=== PATIENT | female | born 1930 | race Caucasian/White ===

== ENCOUNTER 2017-01-28 21:20 | Emergency (ER) | payer MEDICARE, BC ==
[~2017-01-28] VITALS: Ht 167.6 cm; Wt 75.0 kg
[~2017-01-28 21:20] MED LIST: ALENDRONATE70 MG PO; ASPIRIN EC81 MG PO; CILOSTAZOL50 MG PO; CRESTOR5 M1 PO; FISH OIL1000 MG PO; IRON CHEWS PO; LORTAB 5-325 MG1 TAB PO; LORTAB 7.57.5 MG PO; LOTREL1 CA1 PO; LOTREL1 CA6 PO; MELOXICAM7.5 MG PO; NORCO1 TA1 PO; OSTEO BI-FLEX R1 TAB PO; POTASSIUM99 MG PO; PRILOSEC20 MG OR; PROBENECID500 MG PO
[2017-01-28 21:48] LABS: HEMATOCRIT 37.7 % (37.0-47.0); HEMOGLOBIN 12.8 g/dl (12.0-16.0); IMMATURE GRANULOCYTES 0.3 % (0.0-1.0); MEAN CELL VOLUME 90.2 fL CALC (80.0-100.0); MEAN CORPUSCULAR HGB 30.6 pG CALC (26.0-32.0); NEUT# 12.13 thou/uL (2.00-7.15); RED BLOOD COUNT 4.18 mill/uL (4.20-5.60)
[2017-01-28 22:01] LABS: ALBUMIN 4.3 g/dL (3.2-5.0); BILIRUBIN, TOTAL 0.4 mg/dL (0.0-1.4); CALCIUM 9.9 mg/dL (8.4-10.2); CREATININE 1.3 mg/dL (0.5-1.0); POTASSIUM 3.7 mmol/l (3.5-5.1); TOTAL PROTEIN 7.1 g/dL (6.3-8.2)
[2017-01-28 23:25] LABS: URINE BILIRUBIN - DIPSTICK NEGATIVE (NEGATIVE); URINE BLOOD DIPSTICK MODERATE (NEGATIVE); URINE CLARITY CLEAR; URINE COLOR YELLOW; URINE GLUCOSE - DIPSTICK >=1000 mg/dL (NEGATIVE); URINE KETONE 15 mg/dL (NEGATIVE); URINE LEUK ESTERASE NEGATIVE (NEGATIVE); URINE NITRITE - DIPSTICK NEGATIVE (Negative); URINE PROTEIN - DIPSTICK NEGATIVE (NEG-TRACE); URINE UROBILINOGEN - DIPSTICK 0.2 E.U./dL (0.2)
[2017-01-28 23:40] LABS: URINE WBC 0-2 WBC/hpf (0-5)
[2017-01-29] MEDS ORDERED: CILOSTAZOL50 MG PO (00:58)
[2017-01-29] MEDS ORDERED: JARDIANCE10 MG PO (00:59)
[2017-01-29] MEDS ORDERED: LOTREL 5/101 CAP PO (01:02)
[2017-01-29 01:24] VITALS: BP 168/74
== END 2017-01-29 01:30 | disposition short-term general hospital (02) ==
LOC: ED 21:20
PROVIDERS: Emergency Medicine
DX: N13.2 Hydronephrosis with renal and ureteral calculous obstruction (principal); R74.8 Abnormal levels of other serum enzymes; E11.9 Type 2 diabetes mellitus without complications; I10 Essential (primary) hypertension; M10.9 Gout, unspecified; D72.829 Elevated white blood cell count, unspecified

== ENCOUNTER 2017-12-30 12:13 | Emergency (ER) | payer MEDICARE, BC ==
[~2017-12-30] VITALS: Ht 167.6 cm; Wt 64.5 kg
[~2017-12-30 12:13] MED LIST changes: +JARDIANCE10 MG PO; +LOTREL 5/101 CAP PO
[2017-12-30 13:53] VITALS: BP 194/68
== END 2017-12-30 14:00 | disposition home or self-care (01) ==
LOC: ED 12:13
PROC: 0HQ1XZZ Repair Face Skin, External Approach (ICD-10-PCS; principal; 2017-12-30)
DX: S09.90XA Unspecified injury of head, initial encounter (principal); S01.111A Laceration without foreign body of right eyelid and periocular area, initial encounter; W10.8XXA Fall (on) (from) other stairs and steps, initial encounter; Y93.89 Activity, other specified; Y92.009 Unspecified place in unspecified non-institutional (private) residence as the place of occurrence of the external cause

== ENCOUNTER 2018-10-02 07:40 | Emergency (ER) | payer MEDICARE, BC ==
[~2018-10-02] VITALS: Ht 167.6 cm; Wt 68.6 kg
[2018-10-02] MEDS ORDERED: C-10001000 MG PO (08:51)
[2018-10-02 08:52] LABS: HEMATOCRIT 39.8 % (37.0-47.0); HEMOGLOBIN 12.9 g/dl (12.0-16.0); IMMATURE GRANULOCYTES 0.5 % (0.0-5.0); MEAN CELL VOLUME 93.9 fL CALC (80.0-100.0); MEAN CORPUSCULAR HGB 30.4 pG CALC (26.0-32.0); MEAN CORPUSCULAR HGB CONC 32.4 g/L CALC (32.0-36.0); NEUT# 7.8 thou/uL (2.00-7.15); RED BLOOD COUNT 4.24 mill/uL (4.20-5.60); RED CELL DISTRI WIDTH 12.1 % (11.5-15.5)
[2018-10-02] MEDS ORDERED: SINGULAIR10 MG PO (08:52)
[2018-10-02] MEDS ORDERED: B121000 MCG PO (08:52)
[2018-10-02] MEDS ORDERED: VITAMIN E400 UNIT PO (08:53)
[2018-10-02] MEDS ORDERED: CRESTOR20 MG PO (08:54)
[2018-10-02] MEDS ORDERED: CLOPIDOGREL75 MG PO (08:54)
[2018-10-02] MEDS ORDERED: ADULT ASPIRIN R81 MG PO (08:54)
[2018-10-02 09:04] LABS: PROTHROMBIN TIME 10.1 SECONDS (9.0-12.5)
[2018-10-02 09:06] LABS: ALBUMIN 4.1 g/dL (3.2-5.0); ALKALINE PHOSPHATASE 73 u/l (38-126); ANION GAP 14 (6-22 (CALC)); BILIRUBIN, TOTAL 0.5 mg/dL (0.0-1.4); BUN 23 mg/dL (8-23); BUN/CREATININE RATIO 27 (12-20 (CALC)); CARBON DIOXIDE 27 mmol/l (22-30); CHLORIDE 106 mmol/l (95-108); CREATININE 0.8 mg/dL (0.5-1.0); GFR > 60 ML/MIN (>=60 (CALC)); GFR FOR AFR.AMER. > 60 ML/MIN (>=60 (CALC)); POTASSIUM 4.3 mmol/l (3.5-5.1); SGOT/AST 20 u/l (9-36); SODIUM 143 mmol/l (137-146); TOTAL PROTEIN 6.6 g/dL (6.3-8.2)
[2018-10-02] MEDS ORDERED: CARVEDILOL25 MG PO (09:08)
[2018-10-02] MEDS ORDERED: LISINOPRIL20 MG PO (09:10)
[2018-10-02] MEDS ORDERED: AMLODIPINE5 MG PO (09:10)
[2018-10-02 10:23] VITALS: BP 163/65
[2018-10-02] MEDS ORDERED: NAPROSYN500 MG PO (10:30)
[2018-10-02] MEDS ORDERED: GENTAMICIN15 ML/BTL OS (10:30)
== END 2018-10-02 10:40 | disposition home or self-care (01) ==
LOC: ED 07:40
PROVIDERS: Emergency Medicine
DX: S20.212A Contusion of left front wall of thorax, initial encounter (principal); H10.9 Unspecified conjunctivitis; I10 Essential (primary) hypertension; E11.9 Type 2 diabetes mellitus without complications; W01.0XXA Fall on same level from slipping, tripping and stumbling without subsequent striking against object, initial encounter; Y92.009 Unspecified place in unspecified non-institutional (private) residence as the place of occurrence of the external cause

== ENCOUNTER 2018-10-05 16:37 | Emergency (ER) | payer MEDICARE, BC ==
[~2018-10-05] VITALS: Ht 167.6 cm; Wt 68.2 kg
[~2018-10-05 16:37] MED LIST changes: +ADULT ASPIRIN R81 MG PO; +AMLODIPINE5 MG PO; +B121000 MCG PO; +C-10001000 MG PO; +CARVEDILOL25 MG PO; +CLOPIDOGREL75 MG PO; +CRESTOR20 MG PO; +GENTAMICIN15 ML/BTL OS; +LISINOPRIL20 MG PO; +NAPROSYN500 MG PO; +SINGULAIR10 MG PO; +VITAMIN E400 UNIT PO
[2018-10-05 17:08] LABS: HEMATOCRIT 37.9 % (37.0-47.0); HEMOGLOBIN 12.4 g/dl (12.0-16.0); IMMATURE GRANULOCYTES 0.2 % (0.0-5.0); MEAN CELL VOLUME 91.8 fL CALC (80.0-100.0); MEAN CORPUSCULAR HGB CONC 32.7 g/L CALC (32.0-36.0); NEUT# 5.53 thou/uL (2.00-7.15); RED BLOOD COUNT 4.13 mill/uL (4.20-5.60); RED CELL DISTRI WIDTH 12.1 % (11.5-15.5)
[2018-10-05 17:24] LABS: ANION GAP 14 (6-22 (CALC)); BUN 24 mg/dL (8-23); BUN/CREATININE RATIO 29 (12-20 (CALC)); CARBON DIOXIDE 26 mmol/l (22-30); CHLORIDE 104 mmol/l (95-108); CREATININE 0.8 mg/dL (0.5-1.0); GFR > 60 ML/MIN (>=60 (CALC)); GFR FOR AFR.AMER. > 60 ML/MIN (>=60 (CALC)); POTASSIUM 4.3 mmol/l (3.5-5.1); SODIUM 140 mmol/l (137-146)
[2018-10-05 17:56] VITALS: BP 150/80
== END 2018-10-05 18:08 | disposition home or self-care (01) ==
LOC: ED 16:37
PROVIDERS: Family Medicine
DX: R04.0 Epistaxis (principal); I10 Essential (primary) hypertension

== ENCOUNTER 2019-05-18 15:18 | Emergency (ER) | payer MEDICARE, BC ==
[~2019-05-18] VITALS: Ht 167.6 cm; Wt 120.0 kg
[2019-05-18 16:01] LABS: HEMATOCRIT 37.9 % (37.0-47.0); HEMOGLOBIN 12.5 g/dl (12.0-16.0); IMMATURE GRANULOCYTES 0.3 % (0.0-5.0); MEAN CELL VOLUME 91.3 fL CALC (80.0-100.0); MEAN CORPUSCULAR HGB 30.1 pG CALC (26.0-32.0); NEUT# 6.75 thou/uL (2.00-7.15); RED BLOOD COUNT 4.15 mill/uL (4.20-5.60); RED CELL DISTRI WIDTH 12.5 % (11.5-15.5)
[2019-05-18 16:09] LABS: ALBUMIN 4.2 g/dL (3.2-5.0); ALKALINE PHOSPHATASE 71 u/l (38-126); ANION GAP 15 (6-22 (CALC)); BILIRUBIN, TOTAL 0.5 mg/dL (0.0-1.4); BUN 34 mg/dL (8-23); BUN/CREATININE RATIO 29 (12-20 (CALC)); CARBON DIOXIDE 22 mmol/l (22-30); CHLORIDE 108 mmol/l (95-108); CREATININE 1.2 mg/dL (0.5-1.0); GFR 43 ML/MIN (>=60 (CALC)); GFR FOR AFR.AMER. 52 ML/MIN (>=60 (CALC)); SGOT/AST 23 u/l (9-36); SODIUM 141 mmol/l (137-146)
[2019-05-18 16:21] LABS: MYOGLOBIN 69 ng/mL (0 - 62)
[2019-05-18 17:51] LABS: URINE BILIRUBIN - DIPSTICK NEGATIVE (NEGATIVE); URINE BLOOD DIPSTICK TRACE-LYSED (NEGATIVE); URINE COLOR YELLOW; URINE GLUCOSE - DIPSTICK >=1000 mg/dL (NEGATIVE); URINE KETONE NEGATIVE (NEGATIVE); URINE LEUK ESTERASE TRACE (NEGATIVE); URINE NITRITE - DIPSTICK NEGATIVE (Negative); URINE PH 5.5 (4.5-8.0); URINE PROTEIN - DIPSTICK NEGATIVE (NEG-TRACE); URINE UROBILINOGEN - DIPSTICK 0.2 E.U./dL (0.2)
[2019-05-18 18:50] VITALS: BP 168/84
== END 2019-05-18 18:50 | disposition home or self-care (01) ==
LOC: ED 15:18
PROVIDERS: Family Medicine
DX: T67.5XXA Heat exhaustion, unspecified, initial encounter (principal); E86.0 Dehydration; E11.9 Type 2 diabetes mellitus without complications; I10 Essential (primary) hypertension; X30.XXXA Exposure to excessive natural heat, initial encounter; Z95.5 Presence of coronary angioplasty implant and graft

== ENCOUNTER 2019-08-08 | Emergency (ER) | payer MEDICARE, BC | END 2019-08-08 13:57 | disposition home or self-care (01) | PROC: 0HQDXZZ Repair Right Lower Arm Skin, External Approach (ICD-10-PCS; principal; 2019-08-08) | DX: S00.83XA Contusion of other part of head, initial encounter (principal); S51.811A Laceration without foreign body of right forearm, initial encounter; E11.9 Type 2 diabetes mellitus without complications; I10 Essential (primary) hypertension; W01.0XXA Fall on same level from slipping, tripping and stumbling without subsequent striking against object, initial encounter; Y92.22 Religious institution as the place of occurrence of the external cause; Z95.5 Presence of coronary angioplasty implant and graft ==

== ENCOUNTER 2019-09-26 | Emergency (ER) | payer MEDICARE, BC | END 2019-09-26 12:03 | disposition home or self-care (01) | DX: S00.03XA Contusion of scalp, initial encounter (principal); S30.0XXA Contusion of lower back and pelvis, initial encounter; E11.9 Type 2 diabetes mellitus without complications; I10 Essential (primary) hypertension; W18.39XA Other fall on same level, initial encounter; Y92.009 Unspecified place in unspecified non-institutional (private) residence as the place of occurrence of the external cause ==